=== PATIENT | female | born 1965 | race African-American/Black ===

== ENCOUNTER 2017-02-19 20:28 | Emergency (ER) | payer OTHER ==
[~2017-02-19] VITALS: Ht 167.6 cm; Wt 63.5 kg
[~2017-02-19 20:28] MED LIST: ALBU8.5H2 IH; FLUT1DIS3 IH
[2017-02-19 20:47] VITALS: BP 118/66
== END 2017-02-19 23:17 | disposition home or self-care (01) ==
LOC: ER 20:38
DX: H10.9 Unspecified conjunctivitis (principal); J45.909 Unspecified asthma, uncomplicated; Z88.1 Allergy status to other antibiotic agents; Z88.2 Allergy status to sulfonamides
CPT/HCPCS: 99283; A4606; Z7610